=== PATIENT | female | born 1960 | race Caucasian/White ===

== ENCOUNTER 2024-04-10 07:45 | Outpatient (CLI) | payer OTHER, SELFPAY ==
--- NOTE | 2024-04-10 09:18 | P.ANES_ITS ---
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
--- NOTE | 2024-04-10 09:18 | W.ANESCHARGE ---
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
== END 2024-04-10 07:46 | disposition home or self-care (01) ==
LOC: OP CLINIC 07:48
PROVIDERS: PCP Nurse Practitioner Family; Visit Provider Internal Medicine Gastroenterology
DX: R93.3 Abnormal findings on diagnostic imaging of other parts of digestive tract (principal); K52.9 Noninfective gastroenteritis and colitis, unspecified
CPT/HCPCS: 00811; 45380; 88305; J2704